=== PATIENT | male | born 1945 | race Two or more races ===

== ENCOUNTER 2023-02-25 10:42 | Outpatient (CLI) | payer OTHER | END 2023-02-25 10:50 | disposition home or self-care (01) | LOC: TOM 10:42 | PROVIDERS: ATTEND Internal Medicine Cardiovascular Disease | DX: G30.9 Alzheimer's disease, unspecified (principal) ==

== ENCOUNTER 2023-03-26 13:05 | Outpatient (CLI) | payer OTHER | END 2023-03-26 13:09 | disposition home or self-care (01) | LOC: RAD 13:05 | PROVIDERS: ATTEND Urology | DX: N40.0 Benign prostatic hyperplasia without lower urinary tract symptoms (principal) ==

== ENCOUNTER 2023-03-27 10:52 | Outpatient (CLI) | payer OTHER | END 2023-03-27 10:53 | disposition home or self-care (01) | LOC: LAB 10:52 | PROVIDERS: ATTEND Urology | DX: N40.0 Benign prostatic hyperplasia without lower urinary tract symptoms (principal) ==

== ENCOUNTER 2023-08-27 14:58 | Emergency (ER) | payer OTHER ==
[~2023-08-27] VITALS: Ht 170.2 cm; Wt 61.7 kg
[2023-08-27] MEDS ORDERED: DONEPEZIL HCL10 MG PO (15:33)
[2023-08-27] MEDS ORDERED: RESTORIL15 M1 PO (15:33)
[2023-08-27] MEDS ORDERED: SIMVASTATIN40 MG PO (15:33)
== END 2023-08-27 18:02 | disposition home or self-care (01) ==
LOC: ER 14:58
DX: M54.9 Dorsalgia, unspecified (principal); M25.552 Pain in left hip; M48.56XA Collapsed vertebra, not elsewhere classified, lumbar region, initial encounter for fracture
CPT/HCPCS: 72100; 73502; 96372; 99284; J1885

== ENCOUNTER 2023-09-25 07:41 | Outpatient (CLI) | payer OTHER ==
[~2023-09-25 07:41] MED LIST: DONEPEZIL HCL10 MG PO; RESTORIL15 M1 PO; SIMVASTATIN40 MG PO
== END 2023-09-25 07:42 | disposition home or self-care (01) ==
LOC: NUCLEAR 07:41
PROVIDERS: ATTEND Internal Medicine Cardiovascular Disease
DX: I87.2 Venous insufficiency (chronic) (peripheral) (principal)

== ENCOUNTER 2023-09-30 08:04 | Outpatient (CLI) | payer OTHER | END 2023-09-30 08:12 | disposition home or self-care (01) | LOC: MRI 08:04 | PROVIDERS: ATTEND Internal Medicine Cardiovascular Disease | DX: M46.47 Discitis, unspecified, lumbosacral region (principal) | CPT/HCPCS: 72148 ==

== ENCOUNTER 2024-12-20 11:14 | Emergency (ER) | payer OTHER ==
[~2024-12-20] VITALS: Ht 172.7 cm; Wt 54.4 kg
[2024-12-20 13:21] LABS: HEMATOCRIT 39.4 % (39.0-48.0); HEMOGLOBIN 13.1 g/dL (13-16.00); MEAN CELL VOLUME 91.2 fL (80.0-100.00); MEAN CORPUSCULAR HEMOGLOBIN 30.3 pg (27.00-32.0); MEAN CORPUSCULAR HGB CONC 33.2 g/dl (32.0-36.0); PLATELET COUNT 197 K/uL (150-450); RED BLOOD COUNT 4.32 M/uL (4.00-6.00); RED CELL DISTRIBUTION WIDTH 14.8 % (11.5-14.5)
== END 2024-12-20 14:28 | disposition home or self-care (01) ==
LOC: ER 11:16
PROVIDERS: General Practice
DX: R53.81 Other malaise (principal); J06.9 Acute upper respiratory infection, unspecified; Z20.822 Contact with and (suspected) exposure to COVID-19